=== PATIENT | male | born 1975 | race African-American/Black ===

== ENCOUNTER 2023-05-11 17:40 | Emergency (ER) | payer OTHER, MEDICAID ==
[~2023-05-11] VITALS: Ht 188 cm; Wt 102.2 kg
[2023-05-11 18:21] VITALS: BP 132/72; PULSE 99; RESP 18; TEMP 98.2; O2SAT 96
[2023-05-11] MEDS ORDERED: KETOROLAC TROMETH 60MG/2ML VIAL IM ONE (19:30)
[2023-05-11] MEDS ORDERED: CYCL-837 PO (20:39)
== END 2023-05-11 21:00 | disposition home or self-care (01) ==
LOC: EDBD 17:40 → ER 17:40
DX: M54.6 Pain in thoracic spine (principal); R51.9 Headache, unspecified; Z79.899 Other long term (current) drug therapy; Z88.8 Allergy status to other drugs, medicaments and biological substances; V43.52XA Car driver injured in collision with other type car in traffic accident, initial encounter; Y93.89 Activity, other specified; Y92.410 Unspecified street and highway as the place of occurrence of the external cause; Y99.8 Other external cause status
CPT/HCPCS: 72070; 96372; 99283; J1885